=== PATIENT | female | born 1965 | race Caucasian/White ===

== ENCOUNTER 2016-12-22 10:34 | Emergency (ER) | payer OTHER ==
[~2016-12-22] VITALS: Ht 157.5 cm; Wt 77.1 kg
[~2016-12-22 10:34] MED LIST: ACET-6134 PO; ALBU0.0912 IH; AMLO-27 PO; ASPI81CT89 PO; BECL0.089 INH; BENA20TA4 PO; DM H5SYR PO; FLONAS NS; LEVO0.1211 PO; METF10002 PO; MIC5 PO; MONT10TA35 PO; OLOP5SOL OP; SIMV20TA1 PO; VITA20002 PO; [UNRECOGNIZED DRUG - CODE] OT; [UNRECOGNIZED DRUG - CODE] PO
[2016-12-22 10:47] VITALS: BP 139/83
--- NOTE | 2016-12-22 10:52 | NUR ---
PT AMBULATED TO BED 3 AT THIS TIME.
--- NOTE | 2016-12-22 10:55 | NUR ---
51F BIB SELF C/O LEFT CALF PAIN, PRESSURE, RADIATES TO LEFT THIGH/DOWN TO LEFT ANKLE, 5/10 X 2 WEEKS; PT REFERRED TO ER FROM PCP FOR EVALUATION OF LEFT CALF PAIN TO R/O DVT; MILD SWELLING NOTED TO SITE, SLIGHTLY WARM TO TOUCH; LEFT PEDAL PULSE PALPABLE, LEFT CAP REFILL < 2 SECONDS, NO LOSS OF SENSATION TO LEFT LEG AT THIS TIME; PT A&OX4, PERRLA, BL LUNG SOUNDS CLEAR, RR EVEN/UNLABORED, SKIN IS WARM/DRY/INTACT AT THIS TIME; PT DENIES N/V/D AT THIS TIME; PT RESTING IN BED W/ HOB ELEVATED AND IN LOWEST POSITION; POSITIONED FOR COMFORT; ER MD MADE AWARE OF STATUS. WILL CONTINUE TO MONITOR.
--- NOTE | 2016-12-22 10:59 | NUR ---
ROSA WEST EVALUATING PT AT BEDSIDE.
--- NOTE | 2016-12-22 11:23 | NUR ---
US AT BEDSIDE
[2016-12-22] MEDS ORDERED: IBUPROFEN 600 MG TAB PO ONE (11:25)
[2016-12-22] MEDS ORDERED: HYDROcodone/APAP 5/325 MG 1 TAB TAB PO ONE (11:25)
--- NOTE | 2016-12-22 11:35 | NUR ---
Dr. Worley evaluating patient at bedside.
[2016-12-22 12:44] VITALS: BP 135/75
--- NOTE | 2016-12-22 12:44 | NUR ---
Patient discharged with v/s stable. Written and verbal after care instructions given and explained. Patient alert, oriented and verbalized understanding of instructions. Ambulatory with steady gait. All questions addressed prior to discharge. ID band removed. Patient advised to follow up with PMD. Rx of KEFLEX 500MG & IBUPROFEN given. Patient educated on indication of medication including possible reaction and side effects. Opportunity to ask questions provided and answered.
== END 2016-12-22 12:44 | disposition home or self-care (01) ==
LOC: MED 10:34
DX: M79.662 Pain in left lower leg (principal); R22.42 Localized swelling, mass and lump, left lower limb; J45.909 Unspecified asthma, uncomplicated; E11.9 Type 2 diabetes mellitus without complications; I10 Essential (primary) hypertension; E05.90 Thyrotoxicosis, unspecified without thyrotoxic crisis or storm; Z88.8 Allergy status to other drugs, medicaments and biological substances; Z79.82 Long term (current) use of aspirin; Z79.899 Other long term (current) drug therapy
CPT/HCPCS: 81002; 81025; 93971; 99284; Q0092